=== PATIENT | female | born 1960 | race Caucasian/White ===

== ENCOUNTER 2020-03-23 12:30 | Outpatient (CLI) | payer BC, SELFPAY | END 2020-03-23 12:45 | disposition home or self-care (01) | LOC: SLB 12:30 → EDSTATUS 03-28 07:30 | PROVIDERS: ATTEND Obstetrics & Gynecology | DX: Z01.818 Encounter for other preprocedural examination (principal); Z11.59 Encounter for screening for other viral diseases; D25.0 Submucous leiomyoma of uterus | CPT/HCPCS: U0003-CS ==